=== PATIENT | male | born 1975 | race Caucasian/White ===

== ENCOUNTER 2020-12-15 13:25 | Inpatient (IN) | payer OTHER ==
[2020-12-15 14:47] LABS: BASO % 0.7 % (0-2.0); EOS % 1.2 % (0-4.5); HEMATOCRIT 46.2 % (35.4-49); HEMOGLOBIN 15.8 GM/dL (11.7-16.9); LYMPH % 20.5 % (8-40); MCH 30.2 pg (25.7-33.7); MCHC 34.2 g/dl (32.0-35.9); MEAN CELL VOLUME 88.4 fl (80-96); MEAN PLT VOLUME 7.7 fl (7.5-11.1); MONO % 5.9 % (3.8-10.2); NEUT % 71.7 % (42.8-82.8); PLATELET COUNT 166 K/MM3 (134-434); RBC 5.23 M/mm3 (4.00-5.60); RDW 14.2 % (11.9-15.9); WHITE BLOOD COUNT 6.5 K/mm3 (4.0-10.0)
[2020-12-15 14:54] LABS: INR 1.02 (0.83-1.09); PROTHROMBIN TIME (PATIENT) 12.5 SEC (9.7-13.0)
[2020-12-15 14:56] LABS: CHLORIDE 107 mmol/L (98-107); SODIUM 141 mmol/L (136-145)
[2020-12-15 14:57] LABS: ACTIVATED PTT 30.7 SECONDS (25.2-36.5)
[2020-12-15 14:59] LABS: BLOOD UREA NITROGEN 12.3 mg/dL (7-18); CALCIUM 8.5 mg/dL (8.5-10.1); GLUCOSE,RANDOM 90 mg/dL (74-106)
[2020-12-15 15:00] LABS: ALBUMIN 3.7 g/dl (3.4-5.0); ANION GAP 3 MMOL/L (8-16); CO2 31 mmol/L (21-32)
[2020-12-15 15:02] LABS: CREATININE 0.8 mg/dL (0.55-1.3); SGOT/AST 23 U/L (15-37); SGPT/ALT 21 U/L (13-61)
[2020-12-15 15:03] LABS: CHOLESTEROL 191 mg/dL (50-200); TRIGLYCERIDES 73 mg/dL (0-150)
[2020-12-15 15:04] LABS: BILIRUBIN,TOTAL 0.3 mg/dL (0.2-1); LDL CHOLESTEROL (ONLY SJRH) 97 mg/dL (5-100); TOT PROT 7.2 g/dl (6.4-8.2)
[2020-12-15 15:05] LABS: ALK PHOS 66 U/L (45-117); HDL CHOLESTEROL 76 mg/dL (40-60)
[2020-12-15 15:48] LABS: URINE APPEARANCE CLEAR; URINE BILIRUBIN NEGATIVE (NEGATIVE); URINE COLOR YELLOW; URINE GLUCOSE (UA) NEGATIVE (NEGATIVE); URINE KETONE TRACE (NEGATIVE); URINE LEUK ESTERASE NEGATIVE (NEGATIVE); URINE NITRITE NEGATIVE (NEGATIVE); URINE PROTEIN NEGATIVE (NEGATIVE)
[2020-12-15] MEDS: SODIUM CHLORIDE 1,000 ML IV SCH (19:07)
[2020-12-15 22:05] VITALS: BMI 30.9
[2020-12-15] MEDS: ATORVASTATIN CA 10 MG TABLET (FP) PO SCH (22:31)
[2020-12-15] MEDS: ASPIRIN 81 MG CHEWABLE TABLETS PO SCH (22:31)
[2020-12-15] MEDS: ENOXAPARIN NA (PORCINE) 40 MG/0.4 ML DISP.SYRIN SQ SCH (22:31)
[2020-12-16] MEDS ORDERED: carBAMazepine 200 MG TABLET PO ONE (00:04)
[2020-12-16 08:10] LABS: BASO % 0.7 % (0-2.0); EOS % 2.4 % (0-4.5); HEMATOCRIT 41.7 % (35.4-49); HEMOGLOBIN 14.3 GM/dL (11.7-16.9); LYMPH % 37.3 % (8-40); MCH 30.3 pg (25.7-33.7); MCHC 34.3 g/dl (32.0-35.9); MEAN CELL VOLUME 88.3 fl (80-96); MEAN PLT VOLUME 7.6 fl (7.5-11.1); MONO % 8.6 % (3.8-10.2); PLATELET COUNT 160 K/MM3 (134-434); RBC 4.72 M/mm3 (4.00-5.60); WHITE BLOOD COUNT 5.2 K/mm3 (4.0-10.0)
[2020-12-16 08:23] LABS: ALBUMIN 3.4 g/dl (3.4-5.0); BLOOD UREA NITROGEN 12.1 mg/dL (7-18); MAGNESIUM 1.9 mg/dL (1.8-2.4)
[2020-12-16 08:25] LABS: CALCIUM 7.9 mg/dL (8.5-10.1)
[2020-12-16 08:26] LABS: CREATININE 0.8 mg/dL (0.55-1.3); PHOSPHOROUS 3.3 mg/dL (2.5-4.9)
[2020-12-16 08:27] LABS: BILIRUBIN,TOTAL 0.6 mg/dL (0.2-1); TOT PROT 6.2 g/dl (6.4-8.2)
[2020-12-16 09:30] LABS: EPI CELLS 3 /uL (0-25.1); HYALINE CASTS 1 /uL (0-3.1); PH,URINE 5.5 (5.0-8.0); URINE APPEARANCE CLEAR; URINE BACTERIA 1 /uL (0-1359); URINE BILIRUBIN NEGATIVE (NEGATIVE); URINE COLOR YELLOW; URINE GLUCOSE (UA) NEGATIVE (NEGATIVE); URINE KETONE 1+ (NEGATIVE); URINE LEUK ESTERASE 1+ (NEGATIVE); URINE NITRITE NEGATIVE (NEGATIVE); URINE PROTEIN NEGATIVE (NEGATIVE); URINE RBC 7 /uL (0-23.9); URINE WBC 1 /uL (0-25.8)
[2020-12-16] MEDS: ASPIRIN 81 MG CHEWABLE TABLETS PO SCH (09:33)
[2020-12-16] MEDS: ENOXAPARIN NA (PORCINE) 40 MG/0.4 ML DISP.SYRIN SQ SCH (09:33)
[2020-12-16] MEDS ORDERED: LIDOCAINE 5% TOPICAL PATCH TP ONE (11:30)
[2020-12-16] MEDS: carBAMazepine 200 MG TABLET PO SCH ×2 (13:10→21:14)
[2020-12-16] MEDS: SODIUM CHLORIDE 1,000 ML IV SCH (15:11)
[2020-12-16] MEDS: ATORVASTATIN CA 10 MG TABLET (FP) PO SCH (21:14)
[2020-12-16] MEDS ORDERED: LIDOCAINE PATCH REMOVAL MC SCH (22:00)
[2020-12-16] MEDS ORDERED: carBAMazepine 200 MG TABLET PO SCH (22:00)
[2020-12-17] MEDS: SODIUM CHLORIDE 1,000 ML IV SCH (05:41)
[2020-12-17] MEDS: carBAMazepine 200 MG TABLET PO SCH ×2 (05:42→13:03)
[2020-12-17 07:54] LABS: BASO % 0.7 % (0-2.0); EOS % 2.5 % (0-4.5); HEMATOCRIT 43.2 % (35.4-49); HEMOGLOBIN 14.9 GM/dL (11.7-16.9); LYMPH % 33.6 % (8-40); MCH 30.7 pg (25.7-33.7); MCHC 34.6 g/dl (32.0-35.9); MEAN CELL VOLUME 88.7 fl (80-96); MEAN PLT VOLUME 7.7 fl (7.5-11.1); MONO % 8.2 % (3.8-10.2); PLATELET COUNT 162 K/MM3 (134-434); RBC 4.87 M/mm3 (4.00-5.60); RDW 14.1 % (11.9-15.9); WHITE BLOOD COUNT 5.8 K/mm3 (4.0-10.0)
[2020-12-17 08:24] LABS: ALBUMIN 3.5 g/dl (3.4-5.0); BLOOD UREA NITROGEN 15.2 mg/dL (7-18); CALCIUM 7.8 mg/dL (8.5-10.1)
[2020-12-17 08:27] LABS: CREATININE 0.8 mg/dL (0.55-1.3)
[2020-12-17 08:28] LABS: PHOSPHOROUS 3.6 mg/dL (2.5-4.9)
[2020-12-17 08:29] LABS: BILIRUBIN,TOTAL 0.3 mg/dL (0.2-1); TOT PROT 6.7 g/dl (6.4-8.2)
[2020-12-17] MEDS ORDERED: PT OWN MED DRAWER 7, Y5N ONE (09:22)
[2020-12-17] MEDS: ASPIRIN 81 MG CHEWABLE TABLETS PO SCH (09:24)
[2020-12-17] MEDS: ENOXAPARIN NA (PORCINE) 40 MG/0.4 ML DISP.SYRIN SQ SCH (09:30)
[2020-12-17 10:14] VITALS: TEMP 97.8
[2020-12-17 13:32] VITALS: BP 117/66; PULSE 79
== END 2020-12-17 17:36 | disposition home or self-care (01) | DRG 149 ==
LOC: JER 13:25 → JERBED 14:39 → J4S 21:50
PROVIDERS: ADMIT Internal Medicine; ATTEND Internal Medicine
DX: R42 Dizziness and giddiness (principal); F31.9 Bipolar disorder, unspecified; E66.9 Obesity, unspecified; Z68.31 Body mass index [BMI] 31.0-31.9, adult; T42.1X5A Adverse effect of iminostilbenes, initial encounter; E10.9 Type 1 diabetes mellitus without complications
CPT/HCPCS: 36415; 70450-TC; 70551-TC; 80053; 80061; 81003; 82550; 82570; 82962; 83036; 83721; 83735; 84100; 84156; 84484; 85025; 85610; 85730; 86850; 86900; 86901; 87086; 93005; 93010; 93880-TC; 97116-GP; 97161-GP; 99285-25; C9803; U0003; U0005

== ENCOUNTER 2021-03-07 11:00 | Emergency (ER) | payer OTHER ==
[2021-03-07 11:24] VITALS: PULSE 84; BMI 32.1
[2021-03-07 12:47] LABS: HEMATOCRIT 42.9 % (35.4-49); HEMOGLOBIN 14.6 GM/dL (11.7-16.9); MCH 30.2 pg (25.7-33.7); MEAN CELL VOLUME 88.8 fl (80-96); PLATELET COUNT 191 10^3/uL (134-434); RBC 4.83 M/mm3 (4.00-5.60); RDW 14.3 % (11.9-15.9); WHITE BLOOD COUNT 5.3 K/mm3 (4.0-10.0)
[2021-03-07 13:00] LABS: CALCIUM 8.2 mg/dL (8.5-10.1)
[2021-03-07 13:01] LABS: ALBUMIN 3.7 g/dl (3.4-5.0)
[2021-03-07 13:04] LABS: CREATININE 0.8 mg/dL (0.55-1.3)
[2021-03-07 13:05] LABS: BILIRUBIN,TOTAL 0.2 mg/dL (0.2-1)
[2021-03-07 16:15] VITALS: BP 122/84; TEMP 98.4
== END 2021-03-07 16:15 | disposition home or self-care (01) ==
LOC: JER 11:00
DX: R42 Dizziness and giddiness (principal)
CPT/HCPCS: 36415; 80053; 80156; 80175; 82962; 85027; 93005; 93010; 99283-25

== ENCOUNTER 2021-04-09 15:02 | Emergency (ER) | payer OTHER ==
[2021-04-09 15:24] VITALS: BP 131/80; PULSE 98; TEMP 99; BMI 30.7
== END 2021-04-09 18:07 | disposition home or self-care (01) ==
LOC: JERFT 15:02
DX: L03.317 Cellulitis of buttock (principal); L02.31 Cutaneous abscess of buttock
CPT/HCPCS: 82962; 99283-25

== ENCOUNTER 2022-01-02 13:54 | Emergency (ER) | payer OTHER ==
[2022-01-02 14:08] VITALS: TEMP 98.1; BMI 32.8
[2022-01-02] MEDS ORDERED: MECLIZINE HCL 25 MG TABLET (FP) PO ONE (14:26)
[2022-01-02 14:27] VITALS: BP 116/77; PULSE 91
[2022-01-02] MEDS ORDERED: MECLIZINE HCL 25 MG TABLET (FP) ONE (14:27)
[2022-01-02] MEDS ORDERED: SODIUM CHLORIDE 0.9% 1000 ML INFUS.BAG IV ONE (14:38)
[2022-01-02 16:47] LABS: BASO % 0.7 % (0-2.0); EOS % 1.6 % (0-4.5); HEMATOCRIT 44.3 % (35.4-49); LYMPH % 21.6 % (8-40); MCHC 33.7 g/dl (32.0-35.9); MEAN CELL VOLUME 88.8 fl (80-96); MEAN PLT VOLUME 8.4 fl (7.5-11.1); MONO % 6.6 % (3.8-10.2); NEUT % 69.5 % (42.8-82.8); PLATELET COUNT 180 10^3/uL (134-434); RBC 4.99 M/mm3 (4.00-5.60); RDW 14.5 % (11.9-15.9); WHITE BLOOD COUNT 5.3 K/mm3 (4.0-10.0)
[2022-01-02 17:08] LABS: CHLORIDE 116 mmol/L (98-107); SODIUM 146 mmol/L (136-145)
[2022-01-02 17:10] LABS: ANION GAP 6 MMOL/L (8-16); BLOOD UREA NITROGEN 12.2 mg/dL (7-18); CO2 25 mmol/L (21-32)
[2022-01-02 17:11] LABS: ALBUMIN 2.7 g/dl (3.4-5.0); GLUCOSE,RANDOM 108 mg/dL (74-106)
[2022-01-02 17:14] LABS: CREATININE 0.5 mg/dL (0.55-1.3); SGOT/AST 17 U/L (15-37); SGPT/ALT 18 U/L (13-61)
[2022-01-02 17:15] LABS: BILIRUBIN,TOTAL 0.1 mg/dL (0.2-1); TOT PROT 5.2 g/dl (6.4-8.2)
[2022-01-02 17:16] LABS: ALK PHOS 53 U/L (45-117)
[2022-01-02 17:29] LABS: CALCIUM 6.6 mg/dL (8.5-10.1)
[2022-01-02] MEDS ORDERED: POTASSIUM CHLORIDE TABS 20 MEQ TABLET.ER (FP) PO ONE ×2 (17:29→17:50)
[2022-01-02] MEDS ORDERED: CALCIUM GLUCONATE 10% - 1,000 MG/10 ML VIAL IVPUSH ONE (17:32)
[2022-01-02] MEDS ORDERED: CALCIUM GLUCONATE 10% - 1,000 MG/10 ML VIAL ONE (17:50)
[2022-01-02 19:11] LABS: BLOOD UREA NITROGEN 12.5 mg/dL (7-18)
[2022-01-02 19:14] LABS: CREATININE 0.9 mg/dL (0.55-1.3)
[2022-01-02 19:20] LABS: CALCIUM 8.8 mg/dL (8.5-10.1)
== END 2022-01-02 18:35 | disposition home or self-care (01) ==
LOC: JER 13:54
PROC: 3E033GC Introduction of Other Therapeutic Substance into Peripheral Vein, Percutaneous Approach (ICD-10-PCS; principal; 2022-01-02)
DX: R41.82 Altered mental status, unspecified (principal); E87.6 Hypokalemia; E83.51 Hypocalcemia
CPT/HCPCS: 36415; 80048; 80053; 80175; 82962; 85025; 93005; 93010; 99284-25